=== PATIENT | female | born 1945 | race Caucasian/White ===

== ENCOUNTER 2021-10-25 16:03 | Inpatient (IN) | payer MEDICARE, SELFPAY ==
--- NOTE | ~2021-10-25 | CT_ITS ---
EXAMINATION: CT abdomen pelvis wo con EXAM DATE: 10/25/2021 17:06 INDICATION: Abdominal, back pain (left-sided). Estimated GFR 29. TECHNIQUE: Spiral CT of the abdomen and pelvis was performed without contrast. Axial, coronal and s agittal images of the abdomen and pelvis were reviewed. The dose-length product (DLP) for this exami nation was 409.52 mGy-cm. The exposure was tailored according to patient size (auto mA exposure cont rol), and iterative reconstruction (ASIR) was used as additional dose reduction technique. There is no prior study for comparison. FINDINGS: There is inflammation surrounding the gastric pylorus, duodenal bulb with some wall thicken ing suspected. Appearance is most consistent with peptic ulcer disease, please clinically correlate. Gastric cancer not excludable. Check amylase lipase to exclude acute pancreatitis. No free intraperit barton gas or suspicion of perforation. The liver, spleen, adrenal glands and pancreas are unremarkable. Gallbladder is unremarkable. No bi liary obstruction. There is no nephrolithiasis or hydronephrosis. The uterus is retroverted and mo rphologically normal. The bladder is unremarkable. There is no retroperitoneal or pelvic lymphaden opathy. There is moderate scattered arteriosclerotic disease. The appendix is not positively visualized. There is no pericecal inflammatory change to suggest appe ndicitis. There is expected amount of colonic stool. No free intraperitoneal gas. The heart is normal in size. There are no pericardial or pleural effusions. The lung bases are unremarkable. Th ere are no osteoblastic or osteolytic lesions identified. There is moderate lumbar dextroscoliosis, moderate to severe disc disease. IMPRESSION: Gastric pyloric, duodenal wall thickening and mild adjacent inflammation, appearance most consistent with peptic ulcer disease, although gastric cancer or acute pancreatitis are in the diffe rential diagnosis. No perforation. Reviewed, dictated and finalized at location [facility] [employer] IMPRESSION: Gastric pyloric, duodenal wall thickening and mild adjacent inflamm ation, appearance most consistent with peptic ulcer disease, although gastric c ancer or acute pancreatitis are in the differential diagnosis. No perforation.
[2021-10-25 16:11] VITALS: BP 189/65; PULSE 75; RESP 18; TEMP 37.1; O2SAT 100
--- NOTE | 2021-10-25 16:31 | PC.NURSE ---
pt ambulatory to the bathroom to attempt to provide urine sample
[2021-10-25 16:38] LABS: Basophils Absolute Auto 0.1 K/mm3 (0.0-0.1); Basophils Percent Auto 0.6 % (0.2-1.2); Eosinophils Absolute Auto 0.1 K/mm3 (0-0.3); Eosinophils Percent Auto 0.9 % (0-4.4); Hemoglobin 10.6 g/dL (12.0-15.0); Immature Granulocyte Absolute 0.04 K/mm3 (0.00-0.031); Immature Granulocyte Percent A 0.3 % (0-0.5); Lymphocytes Percent Auto 13.7 % (18.3-44.2); Mean Corpuscular HGB Conc 32.1 g/dl (32-36); Mean Corpuscular Hemoglobin 26.9 pg (26-34); Mean Corpuscular Volume 83.8 fl (80-100); Mean Platelet Volume 10.6 fl (7.4-10.4); Monocytes Absolute Auto 0.9 K/mm3 (0.1-0.6); Monocytes Percent Auto 7.5 % (2.6-8.5); Neutrophils Absolute Auto 9.5 K/mm3 (1.3-6.7); Platelet Count Result 412 k/mm3 (150-375); Red Blood Count 3.94 M/mm3 (4.2-5.4); Red Cell Distribution Width 13.9 % (11.5-14.5); White Blood Count 12.4 K/mm3 (4.5-10.0)
--- NOTE | 2021-10-25 16:50 | ED.ABDPAIN ---
HPI - Abdominal Pain General Chief Complaint: Abdominal Pain Stated Complaint: abd pain Time Seen by Provider: 10/25/21 16:07 Source: RN notes reviewed History of Present Illness HPI narrative: Patient presents emergency department from home for abdominal pain. Patient states for the past 2 days has had pain in her left abdomen that radiates around her left back pain is described as aching in nature and has been associated with nausea she denies any fevers or chills chest pain, shortness of breath vomiting diarrhea or any other symptoms states has been taking Advil at home for the pain with minimal relief she denies any other symptoms at this time. Patient states she has been having total symptoms for several weeks but symptoms worsen over the past several days states that she is progressively been able to eat eat and drink yes secondary to not being hungry and having pain Related Data Home Medications Medication Instructions Recorded Confirmed aspirin [Aspir-81] 81 mg PO DAILY 10/25/21 glipizide 5 mg PO BID 10/25/21 lisinopril-hydrochlorothiazide 1 tablet PO DAILY 10/25/21 simvastatin 10 mg PO HS 10/25/21 sitagliptin [Januvia] 50 mg PO DAILY 10/25/21 Allergies Allergy/AdvReac Type Severity Reaction Status Date / Time No Known Allergies Allergy Verified 10/25/21 16:18 Review of Systems Review of Systems: Gen.: Denies fevers or chills ENT: Denies congestion Respiratory: Denies shortness of breath or cough CV: Denies chest pain or palpitations GI: See HPI Musculoskeletal: Denies back pain or muscle pain Neuro: Denies numbness, tingling, weakness or focal weakness Skin: Denies rash Except as documented, all other systems reviewed and negative [facility] Past Medical History Medical History (Updated 10/25/21 @ 18:43 by Kulwant Valdez DO) Diabetes mellitus Hypertension Social History Social History (Updated 10/25/21 @ 16:51 by Kulwant Valdez DO) Smoking status: Never smoker Exam Narrative: APPEARANCE: No acute distress, nontoxic, resting in bed HEENT: Normocephalic, atraumatic, OMM RESPIRATORY: No respiratory distress, clear to auscultation bilaterally with no rhonchi wheezing or rales CARDIOVASCULAR: RRR s murmur ABDOMINAL: Soft nondistended tender palpation left lower quadrant left lower quadrant no tenderness right upper quadrant right lower quadrant no rebound or guarding MUSCULOSKELETAl: Moves all extremities. No clubbing, cyanosis or edema. NEURO: Awake and alert. Following commands, speech normal, no focal deficits SKIN:: Warm, dry. Normal Color PSYCHIATRIC: Normal affect/mood Course Course Emergency Course: Discussed Dr. Kuo presentation work-up agrees with consult agrees with patient continued on Protonix Discussed with YOGI Rodgers for Dr. Martinez presentation work-up agrees with admission at this time Discussed with patient and family results of workup and diagnosis. Discussed need for admission. Patient and family understand and agree to current treatment plan Vital Signs Vital signs: Vital Signs Temperature 98.8 F 10/25/21 16:11 Pulse Rate 75 10/25/21 16:11 Respiratory Rate 18 10/25/21 16:11 Blood Pressure 189/65 H 10/25/21 16:11 Pulse Oximetry 100 10/25/21 16:11 Temperature 98.8 F 10/25/21 16:11 Pulse Rate 75 10/25/21 16:11 Respiratory Rate 18 10/25/21 16:11 Blood Pressure 189/65 H 10/25/21 16:11 Pulse Oximetry 100 10/25/21 16:11 MDM - Abdominal Pain Lab Data Result diagrams: 10/25/21 16:27 10/25/21 16:27 Labs: Lab Results 10/25/21 10/25/21 10/25/21 Range/Units 16:27 16:27 16:38 WBC 12.4 H (4.5-10.0) K/mm3 RBC 3.94 L (4.2-5.4) M/mm3 Hgb 10.6 L (12.0-15.0) g/dL Hct 33.0 L (37.0-47.0) % MCV 83.8 (80-100) fl MCH 26.9 (26-34) pg MCHC 32.1 (32-36) g/dl RDW 13.9 (11.5-14.5) % Plt Count 412 H (150-375) k/mm3 MPV 10.6 H (7.4-10.4) fl Immature Gran % (Auto)
[2021-10-25 16:51] LABS: Alanine Aminotransferase 11 U/L (4-35); Alkaline Phosphatase 122 U/L (38-126); Anion Gap 11 mmol/L (8-16); Aspartate Amino Transferase 22 U/L (14-36); Bilirubin,Total 0.6 mg/dL (0.2-1.3); Blood Urea Nitrogen 41 mg/dL (7-17); Calcium 9.2 mg/dL (8.4-10.2); Carbon Dioxide 23 mmol/L (22-30); Chloride 101 mmol/L (98-107); Estimated CRCL calculation 21 ml/min; Estimated Glomerular Filt Rate 29; Glucose 293 mg/dL (65-110); Lipase 178 U/L (23-300); Potassium 4.9 mmol/L (3.4-5.0); Sodium 135 mmol/L (137-145)
[2021-10-25 16:53] LABS: Add Urine Microscopic? YES; Appearance Urine Clear (Clear); Bacteria Urine Trace /hpf; Bilirubin Urine Negative (Negative); Blood Urine 1+ (Negative); Color Urine Yellow (Yellow); Glucose Urine UA 3+ mg/dL (Negative); Ketones Urine Negative (Negative); Leukocyte Esterase Ur Negative LEU/UL (Negative); Mucus Urine Rare /lpf; Nitrate Urine Positive (Negative); Protein Urine 1+ mg/dL (Negative); RBC Urine 0-2 /hpf (0-2); Specific Grav Ur 1.016 (1.001-1.035); Squamous Epithelial Cell Urine Rare /hpf (Few); Urobilinogen Urine Negative mg/dL (<2.0)
[2021-10-25] MEDS: SODIUM CHLORIDE 0.9% IV 1,000 ML 999 ML IV CONT (17:15)
[2021-10-25] MEDS: ONDANSETRON INJ 4 MG/2 ML VIAL IV PUSH (17:15)
--- NOTE | 2021-10-25 17:18 | ECG_ITS ---
Measurements Intervals [place] Rate: 77 P: 51 MN: 142 QRS: 15 QRSD: 93 T: 37 QT: 382 QTc: 433 Interpretive Statements SINUS RHYTHM BORDERLINE ST-T WAVE ABNORMALITY- ANT/INF LEADS BASELINE ARTIFACT- I, II, III, AVR, AVL, AVF, V1-V6 BORDERLINE ECG Electronically Signed On 10-25-2021 20:05:28 LEAD SETTER by Karlos Devries D.O.
[2021-10-25 17:20] LABS: Lactic Acid Reflex 1.4 mmol/L (0.7-2.1)
[2021-10-25] MEDS: PANTOPRAZOLE SODIUM IV 40 MG VIAL IV PUSH ×2 (17:28→22:35)
[2021-10-25 18:49] VITALS: BP 158/70; PULSE 80; RESP 20; O2SAT 100
[2021-10-25 20:25] LABS: SARS-CoV-2 RNA PCR Negative
--- NOTE | 2021-10-25 21:01 | PM.IMHP ---
H&P: HPI History of Present Illness Date/Time: 10/25/21 21:01 Chief Complaint: Abdominal pain Narrative: 85 years old female with past medical history of diabetes hypertension presented to the hospital with abdominal pain mainly on the left side left back started 1 week ago worsening gradually specially for the last 2 days associated with nausea and vomiting multiple times patient was not able to tolerate food at the ER CT scan of the abdomen was done was concern for peptic ulcer disease also cannot rule out acute pancreatitis but lipase was normal GI was consulted patient will be started on IV hydration IV Protonix also patient has elevated creatinine check CK will give IV fluid. Review of Systems Review of Systems: All systems reviewed & are unremarkable except as noted in HPI and below PMFSH Past Medical History Medical History Diabetes mellitus Hypertension Social History Social History Smoking status: Never smoker Meds Home Medications and Allergies Home Medications Medication Instructions Recorded Confirmed Type aspirin [Aspir-81] 81 mg PO DAILY 10/25/21 History glipizide 5 mg PO BID 10/25/21 History lisinopril-hydrochlorothiazide 1 tablet PO DAILY 10/25/21 History simvastatin 10 mg PO HS 10/25/21 History sitagliptin [Januvia] 50 mg PO DAILY 10/25/21 History Allergies Allergy/AdvReac Type Severity Reaction Status Date / Time No Known Allergies Allergy Verified 10/25/21 16:18 Vital Signs Vital Signs - 24 hr 10/25/21 16:11 10/25/21 18:49 Temperature 98.8 F Pulse Rate 75 80 Respiratory Rate 18 20 Blood Pressure 189/65 H 158/70 H Pulse Oximetry 100 100 Exam Narrative: APPEARANCE: No acute distress, nontoxic, resting in bed HEENT: Normocephalic, atraumatic, OMM RESPIRATORY: No respiratory distress, clear to auscultation bilaterally with no rhonchi wheezing or rales CARDIOVASCULAR: RRR s murmur ABDOMINAL: Positive tenderness no rebound no guarding MUSCULOSKELETAl: Moves all extremities. No clubbing, cyanosis or edema. NEURO: Awake and alert. Following commands, speech normal, no focal deficits SKIN:: Warm, dry. Normal Color PSYCHIATRIC: Normal affect/mood H&P: Results Labs Labs: Short CBC 10/25/21 Range/Units 16:27 WBC 12.4 H (4.5-10.0) K/mm3 Hgb 10.6 L (12.0-15.0) g/dL Hct 33.0 L (37.0-47.0) % Plt Count 412 H (150-375) k/mm3 BMP 10/25/21 16:27 Sodium 135 L Potassium 4.9 Chloride 101 Carbon Dioxide 23 BUN 41 H Creatinine 1.70 H Glucose 293 H Calcium 9.2 Liver Function 10/25/21 Range/Units 16:27 Total Bilirubin 0.6 (0.2-1.3) mg/dL AST 22 (14-36) U/L ALT 11 (4-35) U/L Alkaline Phosphatase 122 (38-126) U/L Albumin 4.0 (3.5-5.1) g/dL Urine 10/25/21 Range/Units 16:38 Urine Color Yellow (Yellow) Urine Appearance Clear (Clear) Urine pH 5.0 (5.0-9.0) Ur Specific [place] 1.016 (1.001-1.035) Urine Protein 1+ H (Negative) mg/dL Urine Glucose (UA) 3+ H (Negative) mg/dL Assessment and Plan Assessment and plan (1) Peptic ulcer disease: Code(s): K27.9 - Peptic ulcer, site unspecified, unspecified as acute or chronic, without hemorrhage or perforation Status: Acute Assessment and Plan: IV Protonix GI consult NPO Unlikely patient has acute pancreatitis (2) Diabetes mellitus: Code(s): E11.9 - Type 2 diabetes mellitus without complications Status: Acute Assessment and Plan: Hold oral medication Give insulin sliding scale (3) Acute renal insufficiency: Code(s): N28.9 - Disorder of kidney and ureter, unspecified Status: Acute Assessment and Plan: Check CK Give IV fluid Consider nephrology consult if no improvement Probably related to dehydration (4) Hypertension: Code(s): I10 - Essential (primar
--- NOTE | 2021-10-25 21:01 | ADMGEN ---
This patient, Carrie Haney, was admitted to 2 Medical Room 260-01. Patient/family oriented to hospital policies and general routines including ID bracelet, bed and alarms, visiting hours, pain management, procedures, bathroom and other care routines, personal items, smoking policy, room service/diet, and visiting hours. Information on how to activate the Rapid Response Team has been discussed. Patient/Family are encouraged to report perceived risks to care and to ask questions if they do not understand what they are told or what they should do.
[2021-10-25 21:04] VITALS: BP 155/82; PULSE 80; RESP 14; TEMP 36.9; O2SAT 100
[2021-10-25 21:21] VITALS: BP 150/52; PULSE 74; RESP 17; TEMP 35.7; O2SAT 99; BMI 28.5
[2021-10-25] MEDS: SODIUM CHLORIDE 0.45% 1,000 ML 100 ML IV CONT (21:38)
[2021-10-25 22:28] LABS: Glucose Point of Care 192 mg/dl (65-105)
[2021-10-25 22:34] LABS: Creatine Kinase 40 U/L (30-135); Magnesium 1.9 mg/dL (1.6-2.3); Phosphorus 3.5 mg/dL (2.5-4.5)
[2021-10-25 23:07] VITALS: BP 150/52; PULSE 74; RESP 17; TEMP 35.7; O2SAT 99
[2021-10-26] VITALS (12 sets, daily range): BP systolic 94–169; BP diastolic 35–74; PULSE 62–74; RESP 13–19; TEMP 35.7–36.3; O2SAT 98–100
[2021-10-26 06:14] LABS: Basophils Absolute Auto 0.1 K/mm3 (0.0-0.1); Basophils Percent Auto 0.8 % (0.2-1.2); Eosinophils Absolute Auto 0.2 K/mm3 (0-0.3); Hematocrit 29.1 % (37.0-47.0); Immature Granulocyte Absolute 0.05 K/mm3 (0.00-0.031); Immature Granulocyte Percent A 0.5 % (0-0.5); Lymphocytes Absolute Auto 1.44 K/mm3 (0.9-3.2); Lymphocytes Percent Auto 15.1 % (18.3-44.2); Mean Corpuscular HGB Conc 30.9 g/dl (32-36); Mean Corpuscular Hemoglobin 26.8 pg (26-34); Mean Corpuscular Volume 86.6 fl (80-100); Mean Platelet Volume 10.4 fl (7.4-10.4); Monocytes Absolute Auto 0.9 K/mm3 (0.1-0.6); Monocytes Percent Auto 8.9 % (2.6-8.5); Neutrophils Percent Auto 72.7 % (45.5-73.1); Platelet Count Result 312 k/mm3 (150-375); Red Blood Count 3.36 M/mm3 (4.2-5.4); Red Cell Distribution Width 13.9 % (11.5-14.5); White Blood Count 9.6 K/mm3 (4.5-10.0)
[2021-10-26 06:58] LABS: Anion Gap 5 mmol/L (8-16); Blood Urea Nitrogen 30 mg/dL (7-17); Calcium 8.3 mg/dL (8.4-10.2); Carbon Dioxide 27 mmol/L (22-30); Chloride 106 mmol/L (98-107); Estimated CRCL calculation 23 ml/min; Estimated Glomerular Filt Rate 31; Glucose 130 mg/dL (65-110); Potassium 4.5 mmol/L (3.4-5.0); Sodium 138 mmol/L (137-145)
--- NOTE | 2021-10-26 07:06 | WPDGICN ---
Assessment and Plan Assessment and plan (1) Abdominal pain: Code(s): R10.9 - Unspecified abdominal pain Status: Acute Assessment and Plan: given the location of her pain and CT scan findings I suspect peptic ulcer disease, particularly given the fact that she does take NSAIDs (2) Anemia: Code(s): D64.9 - Anemia, unspecified Status: Acute Assessment and Plan: hemoglobin is 9. She has not had any evidence of bleeding (3) Diabetes mellitus: Code(s): E11.9 - Type 2 diabetes mellitus without complications Status: Acute Assessment and Plan: she states that she was afraid to eat not only because of nausea but because her sugars seem to be a little on the high side. (4) Peptic ulcer disease: Code(s): K27.9 - Peptic ulcer, site unspecified, unspecified as acute or chronic, without hemorrhage or perforation Status: Acute Assessment and Plan: Use of NSAIDs and the CT CT scan findings are suggestive of peptic ulcer disease. I explained to her that we will perform EGD today. Discussed with her the use of sedation. I explained the possibility of risks and complications such as bleeding or perforation or even the possible need for surgery to correct complication GI Consult Note Consult date/time: 10/26/21 07:06 HPI: Carrie Haney is a 76 year old female who presented to the emergency room last evening because she had not been able to eat for the last 2 weeks. She has been having discomfort in the epigastric area And left upper quadrant. This radiates to her back. She has had no vomiting. She takes aspirin 81 mg daily and also takes 2 Aleve tablets every evening for arthritis. She has had no fever chills. There has been no significant change in bowel habits. She has had no black or tarry stools. She does not believe that she has ever been diagnosed in the past without ulcer or gallbladder disease. CT scan shows thickening of the antrum and pre-pyloric area as well as duodenal bulb. This is suggestive of either infiltrative disease or peptic ulcer disease. Review of Systems Review of Systems: All systems reviewed & are unremarkable except as noted in HPI and below PMFSH Past Medical History Medical History Diabetes mellitus Hypertension Family History Family History Mother Peptic ulcer Sibling Alzheimer disease Sibling Psoriasis Social History Social History Smoking status: Never smoker Alcohol intake: never Substance use: never Spiritual care concerns: No Meds Home Medications and Allergies Home Medications Medication Instructions Recorded Confirmed Type alendronate-vitamin D3 1 tablet PO DAILY 10/25/21 10/25/21 History aspirin [Aspir-81] 81 mg PO DAILY 10/25/21 10/25/21 History glipizide 5 mg PO BID 10/25/21 10/25/21 History lisinopril-hydrochlorothiazide 1 tablet PO DAILY 10/25/21 10/25/21 History simvastatin 10 mg PO HS 10/25/21 10/25/21 History sitagliptin [Januvia] 50 mg PO DAILY 10/25/21 10/25/21 History Allergies Allergy/AdvReac Type Severity Reaction Status Date / Time No Known Allergies Allergy Verified 10/25/21 16:18 Vital Signs Vital Signs - 24 hr 10/25/21 16:11 10/25/21 18:49 10/25/21 21:04 Temperature 37.1 C 36.9 C Pulse Rate 75 80 80 Respiratory Rate 18 20 14 Blood Pressure 189/65 H 158/70 H 155/82 H Pulse Oximetry 100 100 100 10/25/21 21:21 10/25/21 23:07 10/26/21 04:01 Temperature 35.7 C L 35.7 C L 36.1 C L Pulse Rate 74 74 70 Respiratory Rate 17 17 16 Blood Pressure 150/52 H 150/52 H 143/45 H Pulse Oximetry 99 99 98 Exam Const: General: alert Orientation/consciousness: patient oriented x3 Resp: Auscultation: clear to auscultation bilaterally Cardio: Rhythm: regular rhythm GI: Inspection: normal to
[2021-10-26] MEDS: SODIUM CHLORIDE 0.45% 1,000 ML 100 ML IV CONT ×2 (07:20→20:51)
[2021-10-26 07:28] LABS: Glucose Point of Care 140 mg/dl (65-105)
[2021-10-26] MEDS: PANTOPRAZOLE SODIUM IV 40 MG VIAL IV PUSH ×2 (08:09→20:41)
[2021-10-26] MEDS: TOLNAFTATE 1% POWDER 45 GM BTL 1 APPLIC TOPICAL ×2 (08:09→20:41)
--- NOTE | 2021-10-26 08:45 | PM.IMPN ---
Progress Note: A&P Assessment and Plan (1) Peptic ulcer disease: Code(s): K27.9 - Peptic ulcer, site unspecified, unspecified as acute or chronic, without hemorrhage or perforation Status: Acute Assessment and Plan: Abd/Pel CT shows PUD IV Protonix GI consult thank you NPO EGD scheduled for today Lipase and liver enzymes are within normal range (2) Diabetes mellitus: Code(s): E11.9 - Type 2 diabetes mellitus without complications Status: Acute Assessment and Plan: Current glucose 130 Hold oral medication, glipizide 5mg PO BID, and Januvia 50mg PO Give insulin sliding scale Hypoglycemia protocol Trend glucose Adjust therapy as indicated (3) Acute renal insufficiency: Code(s): N28.9 - Disorder of kidney and ureter, unspecified Status: Acute Assessment and Plan: Current BUN/Cr 30/1.60 Baseline unknown as there is no labs to trend at this time CK 40 IV fluid Probably related to dehydration Trend labs (4) Hypertension: Code(s): I10 - Essential (primary) hypertension Status: Acute Assessment and Plan: 143/45 Give p.r.n. hydralazine with parameters Restart oral home medications when appropriate Will need to hold lisinopril/HTCZ for FRANCY (5) Anemia: Code(s): D64.9 - Anemia, unspecified Status: Acute Assessment and Plan: H/H 9.0/29.1 Anemia labs ordered Trend labs Labs in the am Supplement as indiciated (6) Hyperlipidemia: Code(s): E78.5 - Hyperlipidemia, unspecified Status: Acute Assessment and Plan: Hold simvastatin 10mg PO daily for now Liver enzymes Additional Plan DVT prophylaxis SCD Time Spent With Patient Time with patient: Greater than 35 minutes Subjective Date/time seen: 10/26/21 0845 Interval history: Date/Time: 10/25/21 21:01 Narrative: 85 years old female with past medical history of diabetes hypertension presented to the hospital with abdominal pain mainly on the left side left back started 1 week ago worsening gradually specially for the last 2 days associated with nausea and vomiting multiple times patient was not able to tolerate food at the ER CT scan of the abdomen was done was concern for peptic ulcer disease also cannot rule out acute pancreatitis but lipase was normal GI was consulted patient will be started on IV hydration IV Protonix also patient has elevated creatinine check CK will give IV fluid. Date/Time 10/26/21 4921 patient stated that she is feeling little better today. She did get a GI cocktail and stated that the pain is went away since she has gotten that. She denies any chest pain, shortness of breath, nausea, vomiting, diarrhea, constipation,, fatigue. patient is scheduled for an EGD today and is aware of that as well. she also denies any urinary problems. Review of Systems Review of Systems: All systems reviewed & are unremarkable except as noted in HPI and below Exam Const: General: cooperative, no acute distress, well developed, alert and awake Nutritional Appearance: well nourished Orientation/consciousness: oriented to person, oriented to place, oriented to time and patient oriented x3 Limitations: no limitations HENMT: Head: normal to inspection Ears: hearing grossly normal bilaterally General nose exam: Normal external nose present Mouth: Yes Normal oral and palatal mucosa present, Yes lip normal and Yes tongue normal Teeth and gingiva: abnormal tooth and associated gingiva and poor dentition Eyes: General: appearance normal, both eyes and all related structures Neck: Neck: normal visual inspection, full ROM, trachea midline and supple Chest: Chest palpation & inspection: normal inspection of the chest Resp: Effort & Inspection: normal respiratory effort and able to speak in complete sentences Auscultation: clear to auscultation bilaterally Cardio:
--- NOTE | 2021-10-26 08:45 | P.PNIM_ITS ---
Progress Note: A&P Assessment and Plan (1) Peptic ulcer disease: Code(s): K27.9 - Peptic ulcer, site unspecified, unspecified as acute or chronic, without hemorrhage or perforation Status: Acute Assessment and Plan: * Abd/Pel CT shows PUD * IV Protonix * GI consult thank you * NPO * EGD scheduled for today * Lipase and liver enzymes are within normal range (2) Diabetes mellitus: Code(s): E11.9 - Type 2 diabetes mellitus without complications Status: Acute Assessment and Plan: * Current glucose 130 * Hold oral medication, glipizide 5mg PO BID, and Januvia 50mg PO * Give insulin sliding scale * Hypoglycemia protocol * Trend glucose * Adjust therapy as indicated (3) Acute renal insufficiency: Code(s): N28.9 - Disorder of kidney and ureter, unspecified Status: Acute Assessment and Plan: * Current BUN/Cr 30/1.60 * Baseline unknown as there is no labs to trend at this time * CK 40 * IV fluid * Probably related to dehydration * Trend labs (4) Hypertension: Code(s): I10 - Essential (primary) hypertension Status: Acute Assessment and Plan: * 143/45 * Give p.r.n. hydralazine with parameters * Restart oral home medications when appropriate * Will need to hold lisinopril/HTCZ for FRANCY (5) Anemia: Code(s): D64.9 - Anemia, unspecified Status: Acute Assessment and Plan: * H/H 9.0/29.1 * Anemia labs ordered * Trend labs * Labs in the am * Supplement as indiciated (6) Hyperlipidemia: Code(s): E78.5 - Hyperlipidemia, unspecified Status: Acute Assessment and Plan: * Hold simvastatin 10mg PO daily for now * Liver enzymes Additional Plan DVT prophylaxis SCD Time Spent With Patient Time with patient: Greater than 35 minutes Subjective Date/time seen: 10/26/21 0845 Interval history: Date/Time: 10/25/21 21:01 Narrative: 85 years old female with past medical history of diabetes hypertension presented to the hospital with abdominal pain mainly on the left side left back started 1 week ago worsening gradually specially for the last 2 days associated with nausea and vomiting multiple times patient was not able to tolerate food at the ER CT scan of the abdomen was done was concern for peptic ulcer disease also cannot rule out acute pancreatitis but lipase was normal GI was consulted patient will be started on IV hydration IV Protonix also patient has elevated creatinine check CK will give IV fluid. Date/Time 10/26/21 3245 patient stated that she is feeling little better today. She did get a GI cocktail and stated that the pain is went away since she has gotten that. She denies any chest pain, shortness of breath, nausea, vomiting, diarrhea, constipation,, fatigue. patient is scheduled for an EGD today and is aware of that as well. she also denies any urinary problems. Review of Systems Review of Systems: All systems reviewed & are unremarkable except as noted in HPI and below Exam Const: General: cooperative, no acute distress, well developed, alert and awake Nutritional Appearance: well nourished Orientation/consciousness: oriented to person, oriented to place, oriented to time and patient oriented x3 Limitations: no limitations HENMT: Head: normal to inspection Ears: hearing grossly normal bilaterally General nose e
[2021-10-26 11:47] LABS: Glucose Point of Care 134 mg/dl (65-105)
[2021-10-26] MEDS: LACTATED RINGERS 1,000 ML 150 ML IV CONT (12:41)
--- NOTE | 2021-10-26 13:23 | WPDANESEPP ---
Anes - Eval Pre Procedure Procedure: Operation Date: 10/26/21 13:30 Proposed Procedures p Esophagogastroduodenoscopy - Aaron Kuo MD <Julieth Brunner CRNA - Last Filed: 10/26/21 13:25> Date/Time: 10/26/21 13:23 <Julieth Brunner CRNA - Last Filed: 10/26/21 13:25> Pre Op Diagnosis: peptic ulcer disease, abdominal pain, nausea, acut <Julieth Brunner CRNA - Last Filed: 10/26/21 13:25> Patient Data Age: 76 Gender: F Height: 1.55 m Weight: 68.6 kg <Julieth Brunner CRNA - Last Filed: 10/26/21 13:25> Last Vital Signs Temp 36.3 C L 10/26/21 12:37 Pulse 74 10/26/21 12:37 Resp 17 10/26/21 12:37 BP 157/58 H 10/26/21 12:37 Pulse Ox 100 10/26/21 12:37 <Julieth Brunner CRNA - Last Filed: 10/26/21 13:25> Allergies Allergy/AdvReac Type Severity Reaction Status Date / Time No Known Allergies Allergy Verified 10/26/21 12:36 <Julieth Brunner CRNA - Last Filed: 10/26/21 13:25> Home Medications Medication Instructions Recorded Confirmed Type alendronate-vitamin D3 1 tablet PO DAILY 10/25/21 10/25/21 History aspirin [Aspir-81] 81 mg PO DAILY 10/25/21 10/25/21 History glipizide 5 mg PO BID 10/25/21 10/25/21 History lisinopril-hydrochlorothiazide 1 tablet PO DAILY 10/25/21 10/25/21 History simvastatin 10 mg PO HS 10/25/21 10/25/21 History sitagliptin [Januvia] 50 mg PO DAILY 10/25/21 10/25/21 History <Julieth Brunner CRNA - Last Filed: 10/26/21 13:25> Laboratory Tests 10/25/21 10/25/21 10/25/21 16:27 16:27 16:38 WBC 12.4 K/mm3 H K/mm3 (4.5-10.0) RBC 3.94 M/mm3 L M/mm3 (4.2-5.4) Hgb 10.6 g/dL L g/dL (12.0-15.0) Hct 33.0 % L % (37.0-47.0) MCV 83.8 fl fl (80-100) MCH 26.9 pg pg (26-34) MCHC 32.1 g/dl g/dl (32-36) RDW 13.9 % % (11.5-14.5) Plt Count 412 k/mm3 H k/mm3 (150-375) MPV 10.6 fl H fl (7.4-10.4) Immature Gran % (Auto) 0.3 % % (0-0.5) Neut % (Auto) 77.0 % H % (45.5-73.1) Lymph % (Auto) 13.7 % L % (18.3-44.2) [place] % (Auto) 7.5 % % (2.6-8.5) Eos % (Auto) 0.9 % % (0-4.4) Baso % (Auto) 0.6 % % (0.2-1.2) Lymph # (Auto) 1.70 K/mm3 K/mm3 (0.9-3.2) [place] # (Auto) 0.9 K/mm3 H K/mm3 (0.1-0.6) Eos # (Auto) 0.1 K/mm3 K/mm3 (0-0.3) Baso # (Auto) 0.1 K/mm3 K/mm3 (0.0-0.1) Abs Immat Gran (auto) 0.04 K/mm3 H K/mm3 (0.00-0.031) Absolute Neuts (auto) 9.5 K/mm3 H K/mm3 (1.3-6.7) Absolute Nucleated RBC 0.0 K/mm3 K/mm3 (0.0-0.012) Nucleated RBC % 0.0 % % (0.0-0.2) Sodium 135 mmol/L L mmol/L (137-145) Potassium 4.9 mmol/L mmol/L (3.4-5.0) Chloride 101 mmol/L mmol/L (98-107) Carbon Dioxide 23 mmol/L mmol/L (22-30) Anion Gap 11 mmol/L mmol/L (8-16) BUN 41 mg/dL H mg/dL (7-17) Creatinine 1.70 mg/dL H mg/dL (0.7-1.0) Estim Creat Clear Calc 21 ml/min ml/min Estimated GFR 29 L (59 - ) Glucose 293 mg/dL H mg/dL (65-110) POC Capillary Glucose Lactic Acid Calcium 9.2 mg/dL mg/dL (8.4-10.2) Phosphorus Magnesium Total Bilirubin 0.6 mg/dL mg/dL (0.2-1.3) AST 22 U/L U/L (14-36) ALT 11 U/L U/L (4-35) Alkaline Phosphatase 122 U/L U/L (38-126) Total Creatine Kinase Total Protein 7.0 g/dL g/dL (6.3-8.2) Albumin 4.0 g/dL g/dL (3.5-5.1) Lipase 178 U/L U/L (23-300) Free T4 Urine Color Yellow (Yellow) Urine Appearance Clear (Clear) Urine pH 5.0 (5.0-9.0) Ur Specific [place] 1.016 (1.001-1.035) Urine Protein 1+ mg/dL H mg/dL (Negative) Urine G
--- NOTE | 2021-10-26 13:26 | WPDANESEFPP ---
Anes - Eval Final PreProcedure Day of Procedure 10/26/21 13:26 Patient weight: overweight Heart: regular rate and rhythm Lungs: decreased breath sounds Airway: Mallampati scale class II Neurological: other (alert) Last oral intake: >/= 8 hours ASA classification: III Emergent: no Anesthetic plan: proceed Anesthesia type and monitoring: general GIVS and standard monitoring Results Review: All pre-operative results and documents have been reviewed as part of the pre-operative evaluation. Informed Consent: The patient's anesthetic plan and its attendant risks and benefits were discussed with the patient/family/POA. Questions were solicited and answers provided to the satisfaction of the patient/family/POA.
[2021-10-26 13:34] LABS: Glucose Point of Care 125 mg/dl (65-105)
[2021-10-26] MEDS: BENZOCAINE (*SP) 60 ML SPRAY CAN (HURRICAINE) 1 SPRAY MUCOUS MEM (13:34)
[2021-10-26] MEDS: SIMETHICONE ORAL SUSPENSION 20 MG/0.3 ML 30 ML BOTTLE 0.6 ML PO (13:37)
--- NOTE | 2021-10-26 14:30 | PC.NURSE ---
Returned from GI Lab. Report received from [facility].
[2021-10-26 14:32] LABS: Glucose Point of Care 103 mg/dl (65-105)
[2021-10-26 16:32] LABS: Glucose Point of Care 101 mg/dl (65-105)
[2021-10-26 22:29] LABS: Glucose Point of Care 176 mg/dl (65-105)
[2021-10-27 03:56] VITALS: BP 152/54; PULSE 78; RESP 16; TEMP 35.9; O2SAT 100
[2021-10-27 05:12] LABS: Basophils Absolute Auto 0.1 K/mm3 (0.0-0.1); Basophils Percent Auto 0.9 % (0.2-1.2); Eosinophils Absolute Auto 0.2 K/mm3 (0-0.3); Eosinophils Percent Auto 2.7 % (0-4.4); Hemoglobin 9.2 g/dL (12.0-15.0); Immature Granulocyte Absolute 0.04 K/mm3 (0.00-0.031); Immature Granulocyte Percent A 0.5 % (0-0.5); Lymphocytes Absolute Auto 1.02 K/mm3 (0.9-3.2); Lymphocytes Percent Auto 12.9 % (18.3-44.2); Mean Corpuscular HGB Conc 31.7 g/dl (32-36); Mean Corpuscular Hemoglobin 27.1 pg (26-34); Mean Corpuscular Volume 85.3 fl (80-100); Mean Platelet Volume 10.6 fl (7.4-10.4); Monocytes Absolute Auto 0.8 K/mm3 (0.1-0.6); Monocytes Percent Auto 10.4 % (2.6-8.5); Neutrophils Absolute Auto 5.7 K/mm3 (1.3-6.7); Neutrophils Percent Auto 72.6 % (45.5-73.1); Platelet Count Result 323 k/mm3 (150-375); Red Cell Distribution Width 13.9 % (11.5-14.5); White Blood Count 7.9 K/mm3 (4.5-10.0)
[2021-10-27 05:24] LABS: Alanine Aminotransferase 7 U/L (4-35); Albumin Level 3.1 g/dL (3.5-5.1); Alkaline Phosphatase 87 U/L (38-126); Anion Gap 8 mmol/L (8-16); Aspartate Amino Transferase 18 U/L (14-36); Bilirubin,Total 0.4 mg/dL (0.2-1.3); Blood Urea Nitrogen 26 mg/dL (7-17); Calcium 8.5 mg/dL (8.4-10.2); Carbon Dioxide 24 mmol/L (22-30); Chloride 106 mmol/L (98-107); Estimated CRCL calculation 25 ml/min; Estimated Glomerular Filt Rate 34; Glucose 115 mg/dL (65-110); Lactate Dehydrogenase 304 U/L (313-618); Magnesium 1.8 mg/dL (1.6-2.3); Potassium 4.3 mmol/L (3.4-5.0); Sodium 138 mmol/L (137-145)
[2021-10-27 05:31] LABS: Transferrin 187 mg/dL (206-381)
[2021-10-27 06:00] LABS: Iron 27 ug/dL (37-170)
[2021-10-27 06:11] LABS: Percent Iron Saturation 11 % (20-50)
[2021-10-27 06:34] LABS: Folic Acid > 20.0 ng/mL (2.76->20)
--- NOTE | 2021-10-27 07:20 | WPDGIPROGNO ---
Progress Note: A&P Assessment and Plan (1) Abdominal pain: Code(s): R10.9 - Unspecified abdominal pain Status: Acute Assessment and Plan: Her pain is much improved. It remains to be seen how she does when she begins eating. antibiotics have been started empirically because of her abdominal pain and the CT scan findings. She will not need to stay on antibiotics. (2) Acute renal insufficiency: Code(s): N28.9 - Disorder of kidney and ureter, unspecified Status: Acute Assessment and Plan: Creatinine slightly improved, from 1.6-1.5 and BUN lower also (3) Peptic ulcer disease: Code(s): K27.9 - Peptic ulcer, site unspecified, unspecified as acute or chronic, without hemorrhage or perforation Status: Acute Assessment and Plan: she was found have a large deep crater to duodenal ulcer with partial obstruction into the 2nd portion of the duodenum. H pylori is negative. I did obtain biopsies from the margins of the ulcer which are pending, but I suspect this is due to NSAIDs as she takes ibuprofen every night at bedtime. Her specimen was negative for H pylori. Pathology still pending on the ulcer but I suspect it is benign I explained her that we will have her come in for an outpatient EGD in 8 weeks to ensure healing. I explained her that she will be on pantoprazole b.i.d. for least 8 weeks . With a long discussion regarding diet. I told her that her symptoms are partly due to the fact that her ulcer is obstructing. Therefore do not not want her to have any fruits or vegetables, other than pure eat such as applesauce or juices like tomato juice, or potatoes or cooked carrots. In other words I told her no greens no salads no apples oranges Bananas, Etcetera. She then said calmly then I cannot have my pretzels or chicken nuggets. I then went through it again with her and her family member explaining that chicken and pretzels are not of fruit or vegetable. I went through some sample menus, explaining that hamburgers are okay; spaghetti is okay; eggs and amador and potato chips are okay; as long as it is not a plant, such as a fruit or vegetable she can have it. I told her that I will call her Saturday or Saturday when I get the results of her biopsies and go over all this again because I suspect that she is going to forget some of the diet related issue (4) Anemia: Code(s): D64.9 - Anemia, unspecified Status: Acute Assessment and Plan: her counts are stable at this point, but an ulcer that size has a significant risk of bleeding. I told her again that it is imperative that she does not take any more ibuprofen or NSAIDs of any sort. She can take aspirin but must be after eating Subjective Date/time seen: 10/27/21 07:20 she is tolerating clear liquids. There is no evidence of bleeding. The epigastric pain that she was having the last few days has subsided. She has not yet tried full liquids. I told her that we would need to ensure that she is able to eat before she can be discharged, because the ulcer was partly obstructing her duodenum. Review of Systems Review of Systems: All systems reviewed & are unremarkable except as noted in HPI and below Exam Const: General: alert Orientation/consciousness: patient oriented x3 Resp: Auscultation: clear to auscultation bilaterally Cardio: Rhythm: regular rhythm GI: GI Palp: Yes Soft to palpation, No Tenderness to palpation present (GI) and Yes No hepatosplenomegaly present Auscultation: normal bowel sounds Neuro: General: patient oriented x3 Objective Data Vital Signs Vital Signs: Vital Signs - 24 hr 10/26/21 10:45 10/26/21 10:56 10/26/21 12:37 Temperature 35.8 C L 35.8 C L 36.3 C L Pulse Rate 71 71 74 Respiratory Rate 15 15 17 Blood Pressure 138/54 L 138/54 L 157/58 H Pulse Oximetry 100 100 100 10/26/21 13:47 10/26/21 13:57 10/26/21 14:07 Temperature Pulse Rate 62 71 73 Respiratory Rate 13
[2021-10-27 08:22] LABS: Glucose Point of Care 203 mg/dl (65-105)
[2021-10-27] MEDS: SODIUM CHLORIDE 0.45% 1,000 ML 100 ML IV CONT (08:52)
[2021-10-27] MEDS: PANTOPRAZOLE SODIUM IV 40 MG VIAL IV PUSH (08:55)
[2021-10-27] MEDS: TOLNAFTATE 1% POWDER 45 GM BTL 1 APPLIC TOPICAL (08:55)
[2021-10-27] MEDS: FERROUS SULFATE 324 MG TABLET PO (08:55)
[2021-10-27 11:42] LABS: Glucose Point of Care 171 mg/dl (65-105)
--- NOTE | 2021-10-27 14:05 | PM.DS ---
DS: Admitting Diagnosis Discharge Date 10/27/21 1400 Admitting Diagnosis PUD DS: Discharge Diagnosis Discharge Diagnosis (1) Peptic ulcer disease: Code(s): K27.9 - Peptic ulcer, site unspecified, unspecified as acute or chronic, without hemorrhage or perforation Status: Acute Assessment and Plan: Abd/Pel CT shows PUD IV Protonix GI consult thank you NPO EGD scheduled for today Lipase and liver enzymes are within normal range (2) Diabetes mellitus: Code(s): E11.9 - Type 2 diabetes mellitus without complications Status: Acute Assessment and Plan: Current glucose 130 Hold oral medication, glipizide 5mg PO BID, and Januvia 50mg PO Give insulin sliding scale Hypoglycemia protocol Trend glucose Adjust therapy as indicated (3) Acute renal insufficiency: Code(s): N28.9 - Disorder of kidney and ureter, unspecified Status: Acute Assessment and Plan: Current BUN/Cr 30/1.60 Baseline unknown as there is no labs to trend at this time CK 40 IV fluid Probably related to dehydration Trend labs (4) Hypertension: Code(s): I10 - Essential (primary) hypertension Status: Acute Assessment and Plan: 143/45 Give p.r.n. hydralazine with parameters Restart oral home medications when appropriate Will need to hold lisinopril/HTCZ for FRANCY (5) Anemia: Code(s): D64.9 - Anemia, unspecified Status: Inactive Assessment and Plan: H/H 9.0/29.1 Anemia labs ordered Trend labs Labs in the am Supplement as indiciated (6) Hyperlipidemia: Code(s): E78.5 - Hyperlipidemia, unspecified Status: Inactive Assessment and Plan: Hold simvastatin 10mg PO daily for now Liver enzymes DS: Summary Hospital Course Hospital Course: patient is a 76-year-old female who has a past medical history of diabetes, hypertension who presented to the hospital with abdominal pain that started about a week ago. ER CT showed concern for peptic ulcer disease however cannot rule out acute pancreatitis. GI was consulted took the patient for an EGD which did find a very large ulcer that is obstructing. Dr. Kuo instructed the patient not to eat any fruits or vegetables at this time. Labs have been normal and stable. Patient was rehydrated with fluids. Iron studies were done and showed the patient was iron deficient anemia. Patient denies any chest pain, shortness of breath, nausea, vomiting, diarrhea, constipation, weakness, fatigue. Patient is ready to go home. Patient will need to follow up with GI when instructed. Patient is stable for discharge labs are stable and vital signs are stable. Status at Discharge Functional status at discharge: independent ambulation Overall status at discharge: patient is progressing back to baseline Time Spent with Patient Time attestation: Total time spent providing and/or coordinating discharge services: 45 minutes Time spent: Greater than 30 minutes Specific discharge activities: Diagnostic testing, chart review, developing a treatment plan, education, care coordination documentation, physical exam, result review Exam Const: General: cooperative, no acute distress, well developed, alert and awake Nutritional Appearance: well nourished Orientation/consciousness: oriented to person, oriented to place, oriented to time and patient oriented x3 Limitations: no limitations HENMT: Head: normal to inspection Ears: hearing grossly normal bilaterally General nose exam: Normal external nose present Mouth: Yes Normal oral and palatal mucosa present, Yes lip normal and Yes tongue normal Teeth and gingiva: abnormal tooth and associated gingiva and poor dentition Eyes: General: appearance normal, both eyes and all related structures Neck: Neck: normal visual inspection, full ROM, trachea midline and supple Chest: Chest palpation & inspectio
--- NOTE | 2021-10-27 14:05 | P.DS_ITS ---
DS: Admitting Diagnosis Discharge Date 10/27/21 1400 Admitting Diagnosis PUD DS: Discharge Diagnosis Discharge Diagnosis (1) Peptic ulcer disease: Code(s): K27.9 - Peptic ulcer, site unspecified, unspecified as acute or chronic, without hemorrhage or perforation Status: Acute Assessment and Plan: * Abd/Pel CT shows PUD * IV Protonix * GI consult thank you * NPO * EGD scheduled for today * Lipase and liver enzymes are within normal range (2) Diabetes mellitus: Code(s): E11.9 - Type 2 diabetes mellitus without complications Status: Acute Assessment and Plan: * Current glucose 130 * Hold oral medication, glipizide 5mg PO BID, and Januvia 50mg PO * Give insulin sliding scale * Hypoglycemia protocol * Trend glucose * Adjust therapy as indicated (3) Acute renal insufficiency: Code(s): N28.9 - Disorder of kidney and ureter, unspecified Status: Acute Assessment and Plan: * Current BUN/Cr 30/1.60 * Baseline unknown as there is no labs to trend at this time * CK 40 * IV fluid * Probably related to dehydration * Trend labs (4) Hypertension: Code(s): I10 - Essential (primary) hypertension Status: Acute Assessment and Plan: * 143/45 * Give p.r.n. hydralazine with parameters * Restart oral home medications when appropriate * Will need to hold lisinopril/HTCZ for FRANCY (5) Anemia: Code(s): D64.9 - Anemia, unspecified Status: Inactive Assessment and Plan: * H/H 9.0/29.1 * Anemia labs ordered * Trend labs * Labs in the am * Supplement as indiciated (6) Hyperlipidemia: Code(s): E78.5 - Hyperlipidemia, unspecified Status: Inactive Assessment and Plan: * Hold simvastatin 10mg PO daily for now * Liver enzymes DS: Summary Hospital Course Hospital Course: patient is a 76-year-old female who has a past medical history of diabetes, hypertension who presented to the hospital with abdominal pain that started about a week ago. ER CT showed concern for peptic ulcer disease however cannot rule out acute pancreatitis. GI was consulted took the patient for an EGD which did find a very large ulcer that is obstructing. Dr. Kuo instructed the patient not to eat any fruits or vegetables at this time. Labs have been normal and stable. Patient was rehydrated with fluids. Iron studies were done and showed the patient was iron deficient anemia. Patient denies any chest pain, shortness of breath, nausea, vomiting, diarrhea, constipation, weakness, fatigue. Patient is ready to go home. Patient will need to follow up with GI when instructed. Patient is stable for discharge labs are stable and vital signs are stable. Status at Discharge Functional status at discharge: independent ambulation Overall status at discharge: patient is progressing back to baseline Time Spent with Patient Time attestation: Total time spent providing and/or coordinating discharge services: 45 minutes Time spent: Greater than 30 minutes Specific discharge activities: Diagnostic testing, chart review, developing a treatment plan, education, care coordination documentation, physical exam, result review Exam Const: General: cooperative, no acute distress, well developed, alert and awake Nutritional Appearance: well nourished Orientation/consciousness: oriented to person, oriented to place, oriented t
[2021-10-27 14:33] VITALS: BP 156/52; RESP 18
== END 2021-10-27 14:35 | disposition home or self-care (01) | DRG 384 ==
LOC: ANHED 18:43 → ANH2MED 10-26 08:03
PROVIDERS: Internal Medicine; Internal Medicine Gastroenterology; Admitting Provider Internal Medicine; Emergency Provider Emergency Medicine; Visit Provider Nurse Practitioner
PROC: 0DJ08ZZ Inspection of Upper Intestinal Tract, Via Natural or Artificial Opening Endoscopic (ICD-10-PCS; CPT 43235; principal; 2021-10-26 13:30)
DX: K26.3 Acute duodenal ulcer without hemorrhage or perforation (principal); T39.315A Adverse effect of propionic acid derivatives, initial encounter; D50.9 Iron deficiency anemia, unspecified; N28.9 Disorder of kidney and ureter, unspecified; E86.0 Dehydration; E11.9 Type 2 diabetes mellitus without complications; E78.5 Hyperlipidemia, unspecified; I10 Essential (primary) hypertension; Z79.82 Long term (current) use of aspirin; Z79.84 Long term (current) use of oral hypoglycemic drugs; Z79.1 Long term (current) use of non-steroidal anti-inflammatories (NSAID)
CPT/HCPCS: 36415; 74176; 80048; 80053; 81001; 82550; 82607; 82728; 82746; 82948; 83540; 83550; 83605; 83615; 83690; 83735; 84100; 84439; 84466; 85025; 87081; 88305; 93005; 96361; 96374; 96375; 99285; A9270; C9113; C9803; G0378; J0696; J2405; J2704; J7030; J7120; U0003; U0005

== ENCOUNTER 2021-12-25 00:21 | Day surgery (SDC) | payer MEDICARE, SELFPAY ==
[2021-12-07 13:22] VITALS: BMI 26.4
--- NOTE | 2021-12-22 13:59 | PM.HPGS ---
History of Present Illness History of Present Illness Consent: Risks, benefits, and alternatives have been discussed and questions answered. Patient agrees to proceed with procedure. Chief complaint: duodenal ulcer Narrative: Carrie Haney is a 76 year old female Was hospitalized 2 months ago with epigastric pain. A CT scan that showed thickening of the antrum and the duodenum. Endoscopy showed a large deep partially obstructing duodenal ulcer. Biopsies were benign and negative for H pylori. she has been taking pantoprazole twice a day. She also has avoided Ali which is I believe which she was taking when she was hospitalized and is presumably the cause of the ulcer. She returns now for follow-up to ensure healing of the ulcer. Review of Systems Review of Systems: All systems reviewed & are unremarkable except as noted in HPI and below PMFSH Past Medical History Medical History Anemia Diabetes mellitus Hyperlipidemia Hypertension Renal insufficiency Family History Family History Mother Peptic ulcer Sibling Alzheimer disease Sibling Psoriasis Social History Social History Smoking status: Never smoker Alcohol intake: never Substance use: never Substance use type: does not use Living arrangements: alone Spiritual care concerns: No Meds Home Medications and Allergies Home Medications Medication Instructions Recorded Confirmed Type alendronate-vitamin D3 1 tablet PO DAILY 10/25/21 12/07/21 History glipizide 5 mg PO BID 10/25/21 12/07/21 History lisinopril-hydrochlorothiazide 1 tablet PO DAILY 10/25/21 12/07/21 History simvastatin 10 mg PO HS 10/25/21 12/07/21 History pantoprazole 40 mg tablet,delayed 40 mg PO BID #60 tablet 11/21/21 12/07/21 Rx release empagliflozin [Jardiance] 10 mg PO DAILY 12/07/21 12/07/21 History Allergies Allergy/AdvReac Type Severity Reaction Status Date / Time No Known Allergies Allergy Verified 12/25/21 06:52 Exam Resp: Auscultation: clear to auscultation bilaterally Cardio: Rate: regular rate Rhythm: regular rhythm GI: GI Palp: Yes Soft to palpation and No Tenderness to palpation present (GI) Assessment and Plan Assessment and plan (1) Peptic ulcer disease: Code(s): K27.9 - Peptic ulcer, site unspecified, unspecified as acute or chronic, without hemorrhage or perforation Status: Acute Assessment and Plan: EGD with possible biopsy or dilatation or cautery.
[2021-12-25 06:53] VITALS: BP 148/56; PULSE 62; RESP 16; TEMP 35.8; O2SAT 100
[2021-12-25 06:54] VITALS: BMI 26.6
--- NOTE | 2021-12-25 07:04 | WPDANESEPPF ---
Anes - Initial Pre Proc Eval Procedure: Operation Date: 12/25/21 08:00 Proposed Procedures p Esophagogastroduodenoscopy - Aaron Kuo MD Date/Time: 12/25/21 07:04 Surgeon: Aaron Kuo MD Pre Op Diagnosis: duodenal ulcer Patient Data Age: 76 Gender: F Height: 1.55 m Weight: 64.1 kg Last Vital Signs Temp 35.8 C L 12/25/21 06:53 Pulse 62 12/25/21 06:53 Resp 16 12/25/21 06:53 BP 148/56 H 12/25/21 06:53 Pulse Ox 100 12/25/21 06:53 Allergies Allergy/AdvReac Type Severity Reaction Status Date / Time No Known Allergies Allergy Verified 12/25/21 06:52 Home Medications Medication Instructions Recorded Confirmed Type alendronate-vitamin D3 1 tablet PO DAILY 10/25/21 12/07/21 History glipizide 5 mg PO BID 10/25/21 12/07/21 History lisinopril-hydrochlorothiazide 1 tablet PO DAILY 10/25/21 12/07/21 History simvastatin 10 mg PO HS 10/25/21 12/07/21 History pantoprazole 40 mg tablet,delayed 40 mg PO BID #60 tablet 11/21/21 12/07/21 Rx release empagliflozin [Jardiance] 10 mg PO DAILY 12/07/21 12/07/21 History Patient hx anesthesia problems: none Family hx anesthesia problems: none Results Review: All pre-operative results and documents have been reviewed as part of the pre-operative evaluation. [facility] Past Medical History Medical History Anemia Diabetes mellitus Hyperlipidemia Hypertension Renal insufficiency Family History Family History Mother Peptic ulcer Sibling Alzheimer disease Sibling Psoriasis Social History Social History Smoking status: Never smoker Alcohol intake: never Substance use: never Substance use type: does not use Living arrangements: alone Spiritual care concerns: No Anes - Eval Final PreProcedure Day of Procedure 12/25/21 07:04 Patient weight: overweight Heart: regular rate and rhythm Lungs: clear to auscultation Airway: Mallampati scale class II Neurological: alert and oriented Last oral intake: >/= 8 hours ASA classification: III Emergent: no Anesthetic plan: proceed Anesthesia type and monitoring: general GIVS and standard monitoring Results Review: All pre-operative results and documents have been reviewed as part of the pre-operative evaluation. Informed Consent: The patient's anesthetic plan and its attendant risks and benefits were discussed with the patient/family/POA. Questions were solicited and answers provided to the satisfaction of the patient/family/POA.
[2021-12-25 07:07] LABS: Glucose Point of Care 210 mg/dl (65-105)
[2021-12-25] MEDS: LACTATED RINGERS 1,000 ML 150 ML IV CONT (07:07)
[2021-12-25 08:07] VITALS: BP 139/55; PULSE 54; RESP 20; O2SAT 100
[2021-12-25 08:17] VITALS: BP 151/67; PULSE 58; RESP 20; O2SAT 98
[2021-12-25 08:27] VITALS: BP 165/72; PULSE 60; RESP 21; O2SAT 100
== END 2021-12-25 08:40 | disposition home or self-care (01) ==
PROVIDERS: PCP Family Medicine; Visit Provider Internal Medicine Gastroenterology
PROC: 0DJ08ZZ Inspection of Upper Intestinal Tract, Via Natural or Artificial Opening Endoscopic (ICD-10-PCS; CPT 43235; principal; 2021-12-25 08:00)
DX: Z09 Encounter for follow-up examination after completed treatment for conditions other than malignant neoplasm (principal); Z87.11 Personal history of peptic ulcer disease; K29.80 Duodenitis without bleeding; D64.9 Anemia, unspecified; E11.9 Type 2 diabetes mellitus without complications; I10 Essential (primary) hypertension; E78.5 Hyperlipidemia, unspecified; N28.9 Disorder of kidney and ureter, unspecified
CPT/HCPCS: 43235; 82948; J2704; J7120

== ENCOUNTER 2022-03-16 09:53 | Outpatient (CLI) | payer MEDICARE, SELFPAY ==
--- NOTE | ~2022-03-16 | US_ITS ---
EXAMINATION: US renal BI DATE: 03/16/2022 10:49 INDICATION: Stage IV chronic kidney disease TECHNIQUE: Multiple ultrasound grayscale images of the kidneys were obtained. COMPARISON: CT dated 10/25/2021 FINDINGS: The right kidney measures 10.2 x 4.1 x 5.3 cm. The left kidney measures 9.7 x 4.9 x 5.4 cm. The kidne ys demonstrate normal echogenicity. There is no hydronephrosis in either kidney. No stones identifie d. The bladder is normal. IMPRESSION: 1. Normal kidneys without hydronephrosis. Reviewed, dictated and finalized at location B.
== END 2022-03-16 09:54 | disposition home or self-care (01) ==
PROVIDERS: PCP Family Medicine; Visit Provider Internal Medicine Nephrology
DX: N18.4 Chronic kidney disease, stage 4 (severe) (principal); E11.9 Type 2 diabetes mellitus without complications; I10 Essential (primary) hypertension; K25.9 Gastric ulcer, unspecified as acute or chronic, without hemorrhage or perforation; M15.9 Polyosteoarthritis, unspecified
CPT/HCPCS: 76775

== ENCOUNTER 2022-10-31 07:32 | Outpatient (CLI) | payer MEDICARE, SELFPAY ==
--- NOTE | ~2022-10-31 | CT_ITS ---
EXAMINATION: CT diagnostic chest wo con DATE: 10/31/2022 08:08 INDICATION: Abnormal weight loss. TECHNIQUE: Computed tomography (CT) of the chest was performed without intravenous contrast. The dose -length product was 130.92 mGy-cm. Automated exposure control and iterative reconstruction technique were employed. COMPARISON: None FINDINGS: No endobronchial lesions. There is evidence for chronic granulomatous disease in the lungs, liver and spleen. No thoracic lymphadenopathy. There is atherosclerosis of the aorta and coronary ar teries. There are few scattered 1-2 mm nodules. There is a 3 mm left lower lobe nodule, image 46. Den sely calcified granuloma in the right lower lobe. No focal airspace consolidation. No pneumothorax. N o acute bone or joint abnormality. IMPRESSION: 1. No findings to account for patient's symptoms. No acute cardiopulmonary disease. 3: Small pulmonary nodules measuring 3 mm or less, likely benign. Consider follow-up low dose CT [facility] st in 12 months. Reviewed, dictated and finalized at location B. [facility] IMPRESSION: 1. No findings to account for patient's symptoms. No acute cardiopulmonary dise ase. 3: Small pulmonary nodules measuring 3 mm or less, likely benign. Consider fol low-up low dose CT chest in 12 months.
[2022-10-31 07:55] LABS: Estimated Glomerular Filt Rate 20
== END 2022-10-31 07:33 | disposition home or self-care (01) ==
PROVIDERS: PCP Family Medicine; Visit Provider Family Medicine
DX: R63.4 Abnormal weight loss (principal); Z79.899 Other long term (current) drug therapy; R91.8 Other nonspecific abnormal finding of lung field
CPT/HCPCS: 71250